=== PATIENT | female | born 2000 | race American Indian/Alaskan Native ===

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

== ENCOUNTER 2023-01-15 21:49 | Emergency (ER) | payer MEDICAID, OTHER ==
[2023-01-15] MEDS ORDERED: diphenhydrAMINE 50 MG Cap PO ONE (21:54)
[2023-01-15 22:07] VITALS: BP 133/88; PULSE 79
== END 2023-01-15 22:35 | disposition home or self-care (01) ==
LOC: DL.ED 21:49
DX: F41.9 Anxiety disorder, unspecified (principal)
CPT/HCPCS: 99284; Q0163

== ENCOUNTER 2023-03-10 06:37 | Emergency (ER) | payer SELFPAY ==
[2023-03-10 06:08] LABS: AMPHETAMINES,URINE NEGATIVE (NEGATIVE); BARBITURATES,URINE NEGATIVE (NEGATIVE); BENZODIAZEPINE,URINE NEGATIVE (NEGATIVE); MDMA (ECSTASY), URINE NEGATIVE (NEGATIVE); METHADONE,URINE NEGATIVE (NEGATIVE); METHAMPHETAMINES,URINE NEGATIVE (NEGATIVE); OPIATES,URINE NEGATIVE (NEGATIVE); OXYCODONE,URINE NEGATIVE (NEGATIVE); PHENCYCLIDINE,URINE NEGATIVE (NEGATIVE); TCA,URINE NEGATIVE (NEGATIVE)
[2023-03-10 06:11] LABS: HEMATOCRIT 40.4 % (37.0-47.0); MEAN CORPUSCULAR HEMOGLOBIN 26.8 pg (27.0-34.0); MEAN CORPUSCULAR HGB CONC 32.2 g/dL (33.0-35.0); MEAN CORPUSCULAR VOLUME 83.3 fL (80-100); PLATELET COUNT,PLT 355 10^3/uL (150-450); RED BLOOD CELL COUNT 4.85 10^6/uL (4.2-5.4); WHITE BLOOD CELL COUNT,WBC 11.1 10^3/uL (5.0-10.0)
[2023-03-10 06:22] LABS: BASOPHILS PERCENT AUTO 0.7 % (0.0-1.0); LYMPHOCYTES PERCENT AUTO 18.3 % (20.5-50.1); MONOCYTES PERCENT AUTO 5.9 % (2-8); NEUTROPHILS PERCENT AUTO 75.1 % (42.2-75.2)
[2023-03-10 06:25] LABS: ALANINE AMINOTRANSFERASE,ALT 20 U/L (14-59); ALBUMIN 4.1 g/dL (3.4-5.0); ALKALINE PHOSPHATASE 39 U/L (46-116); ANION GAP 19.4 mEq/L (7-13); ASPARTATE AMNIOTRANSFERASE,AST 18 U/L (15-37); BLOOD UREA NITROGEN,BUN 11 mg/dL (7-18); BUN/CREATININE RATIO 13.1 (No establ ref range); CALCIUM 9.5 mg/dL (8.5-10.1); CARBON DIOXIDE,CO2 23 mmol/L (21-32); CHLORIDE,CL 102 mmol/L (98-107); CREATININE 0.84 mg/dL (0.55-1.02); EST CRCL DRUG DOSING (CG) 114.56 mL/min; GLUCOSE RANDOM 97 mg/dL (70-99); LIPASE 16 U/L (16-77); POTASSIUM,K 3.4 mmol/L (3.5-5.1); PROTEIN TOTAL,TP 8.2 g/dL (6.4-8.2); SODIUM,NA 141 mmol/L (136-145)
[2023-03-10 06:27] LABS: CORONAVIRUS COVID-19 NAA NEGATIVE (NEGATIVE); INFLUENZA A NAA NEGATIVE (NEGATIVE); INFLUENZA B NAA NEGATIVE (NEGATIVE); RESPIRATORY SYNCYTIAL VIR NAA NEGATIVE (NEGATIVE)
[2023-03-10 06:28] LABS: ESTIMATED GFR 101 mL/min (>=60); ETHANOL BLOOD MEDICAL < 3 mg/dL (0)
[~2023-03-10 06:37] MED LIST: Aluminum Hydroxide/Magnesium Hydroxide/Simethicone Susp 30 ML Cup PO ONE; Lidocaine 2% Viscous Solution 15 ML UD PO ONE; Sodium Chloride 0.9% 10 ML Syringe FLUSH PRN
[2023-03-10 06:44] LABS: BAND PERCENT MAN 1 %; LYMPHOCYTES PERCENT MAN 19 % (20-50); MONOCYTES PERCENT MAN 5 % (2-8); NRBC MANUAL 4 /100WBC; SEG NEUTROPHILS PERCENT MAN 75 % (42-75)
[2023-03-10 07:25] VITALS: BP 124/73; PULSE 106
== END 2023-03-10 07:25 | disposition home or self-care (01) ==
LOC: DL.ED 06:37
DX: K29.20 Alcoholic gastritis without bleeding (principal); Z20.822 Contact with and (suspected) exposure to COVID-19
CPT/HCPCS: 0241U; 36415; 80053; 80305; 80307; 81025; 83690; 84484; 85025; 93005; 93010; 99284; 99285; A9270; J3490

== ENCOUNTER 2023-11-19 20:36 | Emergency (ER) | payer MEDICAID ==
[2023-11-19 20:58] VITALS: BP 117/94; PULSE 136
[2023-11-19] MEDS: Sodium Chloride 0.9% 1,000 ML IV ONE (21:08)
[2023-11-19] MEDS: Ketorolac 30 MG/ML SDV IVPUSH ONE (21:08)
[2023-11-19 21:15] LABS: BASOPHILS PERCENT AUTO 0.4 % (0.0-1.0); HEMATOCRIT 39.4 % (37.0-47.0); HEMOGLOBIN 12.2 g/dL (12.0-16.0); LYMPHOCYTES PERCENT AUTO 21.5 % (20.5-50.1); MEAN CORPUSCULAR HEMOGLOBIN 25.2 pg (27.0-34.0); MEAN CORPUSCULAR VOLUME 81.4 fL (80-100); MONOCYTES PERCENT AUTO 10.1 % (2-8); PLATELET COUNT,PLT 260 10^3/uL (150-450); RED BLOOD CELL COUNT 4.84 10^6/uL (4.2-5.4); WHITE BLOOD CELL COUNT,WBC 8.1 10^3/uL (5.0-10.0)
[2023-11-19 21:31] LABS: A/G RATIO 0.8; ALANINE AMINOTRANSFERASE,ALT 25 U/L (14-59); ALBUMIN 3.8 g/dL (3.4-5.0); ALKALINE PHOSPHATASE 32 U/L (46-116); ANION GAP 18.8 mEq/L (7-13); ASPARTATE AMNIOTRANSFERASE,AST 18 U/L (15-37); BILIRUBIN TOTAL 0.7 mg/dL (0.2-1.0); BLOOD UREA NITROGEN,BUN 14 mg/dL (7-18); BUN/CREATININE RATIO 16.7 (No establ ref range); CALCIUM 9.3 mg/dL (8.5-10.1); CARBON DIOXIDE,CO2 21 mmol/L (21-32); CHLORIDE,CL 98 mmol/L (98-107); CREATININE 0.84 mg/dL (0.55-1.02); GLUCOSE RANDOM 79 mg/dL (70-99); POTASSIUM,K 3.8 mmol/L (3.5-5.1); PROTEIN TOTAL,TP 8.3 g/dL (6.4-8.2); SODIUM,NA 134 mmol/L (136-145)
[2023-11-19 21:32] LABS: ESTIMATED GFR 101 mL/min (>=60)
[2023-11-19 21:36] LABS: HCG QUALITATIVE,SERUM NEGATIVE (NEGATIVE); LACTIC ACID 1.5 mmol/L (0.4-2.0)
[2023-11-19] MEDS: Iopamidol 612 MG/ML 100 ML Bottle IVPUSH ONE (21:36)
[2023-11-19] MEDS: Ampicillin/Sulbactam Na 3 GM in Sodium Chloride 0.9% 100 ML IV ONE (22:48)
[2023-11-19] MEDS: Dexamethasone 4 MG/ML SDV IVPUSH ONE (23:42)
[2023-11-20] MEDS: Take Home: Amoxicillin/Clavulanate K 875-125 MG Tab, 6 Tab Pack PO ONE
[2023-11-20] MEDS: Take Home: Acetaminophen/HYDROcodone 325-5 MG, 5 Tab Pack PO ONE
== END 2023-11-20 00:05 | disposition home or self-care (01) ==
LOC: DL.ED 20:36
DX: J03.90 Acute tonsillitis, unspecified (principal); J02.9 Acute pharyngitis, unspecified; B37.9 Candidiasis, unspecified; K02.9 Dental caries, unspecified
CPT/HCPCS: 36415; 70491; 80053; 83605; 84703; 85025; 87081; 87389; 87430; 96361; 96374; 96375; 99284; 99284-25; A9270-GY; J0295; J1100; J1885; J3490; J7030; Q9967